=== PATIENT | male | born 1975 | race Caucasian/White ===

== ENCOUNTER 2017-05-21 08:18 | Emergency (ER) | payer OTHER ==
--- NOTE | 2017-05-21 08:56 | RAD ---
HISTORY: Cough, fever COMPARISONS: March 29, 2011 VIEWS: 4: Frontal dual-energy and lateral views of the chest. FINDINGS: CARDIOMEDIASTINAL SILHOUETTE: The cardiomediastinal silhouette is normal. ZHENG: The zheng are normal. PLEURA: The costophrenic angles are sharp. No pleural abnormalities are noted. LUNG PARENCHYMA: The lungs are clear. ABDOMEN: The upper abdomen is clear. There is no subphrenic gas. BONES AND SOFT TISSUES: No bone or soft tissue abnormalities are noted. OTHER: None. IMPRESSION: NO ACTIVE CARDIOPULMONARY DISEASE.
[2017-05-21 09:20] VITALS: BP 110/77
--- NOTE | 2017-05-21 09:38 | ED ---
Respiratory - HPI Summary HPI Summary: Patient is a 42-year-old male who presents to the emergency department for a productive cough 4 days. Associated symptoms of fever as high as 102F. Past medical history of asthma. Patient states he has been needing his MDI more frequently since illness started. Associated symptoms of sore throat, sinus congestion, right-sided chest pain with coughing. Otherwise denies chest pain, his breath, diaphoresis, abdominal pain, nausea vomiting, diarrhea. Denies sick contacts. Patient states he was seen earlier in the week at urgent care and was placed on Tamiflu for suspected influenza. He is concerned today because the fever and productive cough for on going. Patient is not a smoker. Denies history of hypertension, diabetes, high cholesterol, CAD, strong family hx of [place]. Symptoms are mild in severity. No current modifying factors. - History of Current Complaint Chief Complaint: EDUpperRespComplaint Stated Complaint: POSSIBLE PNEUMONIA-CC THURSDAY FLU LIKE Time Seen by Provider: 05/21/17 08:28 Hx Obtained From: Patient Onset/Duration: Gradual Onset Timing: Constant Initial Severity: Moderate Current Severity: Moderate Pain Intensity: 0 Character: Wheezing, Cough (Productive) Sputum Amount: Moderate Sputum Color: Yellow Aggravating Factor(s): URI Alleviating Factor(s): MDI (Frequency Of Use) Associated Signs and Symptoms: Fever, URI, Wheezing, Chest Pain with Cough, Nasal Congestion, Sinus Discomfort - Risk Factors Status Asthmaticus Risk Factors: Negative Pulmonary Embolism Risk Factors: Negative Cardiac Risk Factors: Negative Pseudomonas Risk Factors: Negative Tuberculosis Risk Factors: Negative - Allergy/Home Medications Allergies/Adverse Reactions: Allergies Allergy/AdvReac Type Severity Reaction Status Date / Time naproxen [From Aleve] Allergy Tachycardia Verified 05/21/17 08:24 Home Medications: Home Medications Albuterol HFA INHALER* [Ventolin HFA Inhaler*] 2 puff INH Q4H PRN 05/21/17 [ History Confirmed 05/21/17] Fluticasone HFA 220 mcg(NF) [Flovent HFA 220 Mcg(NF)] 1 puff INH DAILY 05/21/17 [History Confirmed 05/21/17] Oseltamivir CAP* [Tamiflu CAP*] 75 mg PO BID 05/21/17 [History Confirmed ] Pantoprazole TAB (NF) [Protonix TAB (NF)] 40 mg PO DAILY 05/21/17 [History Confirmed 05/21/17] guaiFENesin ER TAB [Mucinex*] 600 mg PO BID 05/21/17 [History Confirmed 05/21/17 ] PMH/Surg Hx/FS Hx/Imm Hx Previously Healthy: Yes Endocrine/Hematology History: Denies: Hx Diabetes, Hx Thyroid Disease Cardiovascular History: Denies: Hx Hypercholesterolemia, Hx Hypertension Respiratory History: Reports: Hx Asthma Denies: Hx Chronic Obstructive Pulmonary Disease (COPD) GI History: Denies: Hx Ulcer - Surgical History Surgery Procedure, Year, and Place: plate to rt lower leg, bilat acl reconstructions Infectious Disease History: No Infectious Disease History: Denies: Hx Hepatitis, Hx Human Immunodeficiency Virus (HIV), Traveled Outside the [place] in Last 30 Days - Family History Known Family History: Positive: Unknown - PT ADOPTED - Social History Occupation: Employed Full-time Lives: With Family Alcohol Use: Occasionally Substance Use Type: Reports: None Smoking Status (MU): Never Smoked Tobacco Type: Smokeless Tobacco Review of Systems - ROS Summary Review of Systems Summary: Constitutional: Fever and chills Head/Face: No trauma. Neck: No swelling or pain. Eyes: No visual disturbances. ENT: Positive for sore throat, sinus congestion. Heart: Right-sided chest pain with coughing Lungs: Active cough and wheeze Abdomen: No pain. No nausea, vomiting or diarrhea. No abdominal pain MS: No truama. No leg swelling or pain. Skin: No rash. : No urgency frequency or dysuria. Neuro: No change in mental status. No numbness, tingling or weakness. All other systems reviewed and are negative. Positive: Fever, Chills Eyes: Negative Positive: Sore Throat, Nasal Discharge Positive: Other - Right chest pain with coughing Positive: Cough, Other - Wheeze Negative: Abdominal Pain, Vomiting, Diarrhea Genitourinary: Negative Positive: Arthralgia Skin: Negative Neurological: Negative Psychological: Normal All Other Systems Reviewed And Are Negative: Yes Physical Exam Vital Signs On Initial Exam: Initial Vitals Temp Pulse Resp BP Pulse Ox 97.9 F 88 16 133/91 97 05/21/17 08:21 05/21/17 08:21 05/21/17 08:21 05/21/17 08:21 05/21/17 08:21 Diagnostics - Vital Signs Vital Signs Temp Pulse Resp BP Pulse Ox 05/21/17 09:20 98.2 F 88 16 110/77 96 05/21/17 08:32 91 98 05/21/17 08:30 125/74 05/21/17 08:21 97.9 F 88 16 133/91 97 - Laboratory Lab Statement: Any lab studies that have been ordered have been reviewed, and results considered in the medical decision making process. Disposition - Course Course Of Treatment: Pt. presenting with ongoing productive cough and fever. He is afebrile emergency department was stable vital signs. Oxygen saturation is 96-98% on RA which is normal. Chest x-ray was obtained and is negative for infiltrate or acute change, reading per myself and radiology. Given patient's history of asthma, cough and fever will started on Zithromax and a course of steroids. Results were discussed with patient and . Advised to continue albuterol inhaler as directed every 4-6 hours for wheezing. Increase fluids and rest. Tylenol or Motrin for pain and fever as directed. Close follow-up with PCP on Thursday and return to the ER over the weekend if symptoms change or worsen. Patient and understand and agree with plan. - Differential Dx - Cardiopulmonary Differential Diagnoses - Cardiopulmonary: Asthma, Bronchitis, Sinusitis, Other - Pneumonia - Diagnoses Provider Diagnoses: Acute bacterial bronchitis Discharge - Sign-Out/Discharge Documenting (check all that apply): Discharge - Discharge Plan Condition: Good Disposition: HOME Prescriptions: Azithromycin TAB* [Zithromax TAB (Z-MICHAEL) 250 mg #6 tabs] 2 tab PO .TODAY, THEN 1 DAILY #1 michael methylPREDNISolone [Medrol Dosepak 4 MG*] 0 mg PO .SEE MICHAEL INSTRUCTION #1 tab Patient Education Materials: Acute Bronchitis (ED) Forms: *Work Release Referrals: No Primary Care Phys,NOPCP [Primary Care Provider] - 4 Days Additional Instructions: Take medications as directed Continue rescue inhaler as directed for wheezing Increase fluids and rest Tylenol or Motrin for pain and fever as directed Return to ER if symptoms change or worsen - Billing Disposition and Condition Condition: GOOD Disposition: HOME
== END 2017-05-21 09:20 | disposition home or self-care (01) ==
LOC: ED 08:18
DX: J20.9 Acute bronchitis, unspecified (principal); R50.9 Fever, unspecified; J06.9 Acute upper respiratory infection, unspecified; R06.2 Wheezing; R07.9 Chest pain, unspecified; R05 Cough; R09.81 Nasal congestion
CPT/HCPCS: 71046; 99282

== ENCOUNTER 2018-06-28 08:15 | Emergency (ER) | payer OTHER ==
--- NOTE | 2018-06-28 09:17 | ED ---
Upper Extremity Pain - HPI Summary HPI Summary: The patient is a 43 year old M presenting to [facility] accompanied by with a chief complaint of R shoulder pain since this morning today, 06/28/18. Patient said he pulling a road saw cord when his shoulder let go and popped. The patient rates the pain 5/10 in severity. Patient reports decreased ROM and increased pain with movement and palpation of the R shoulder. Patient denies any neck pain. Patient reports pain was alleviated by nothing. The patient works at [employer]. - History of Current Complaint Chief Complaint: EDExtremityUpper Stated Complaint: RIGHT SHOULDER INJURY PER PT Time Seen by Provider: 06/28/18 08:20 Hx Obtained From: Patient Mechanism Of Injury: Other - Pulling a road saw cord Onset/Duration: Started Hours Ago - This morning, Still Present Timing: Constant, Lasting Hours - This morning Severity Initially: Moderate Severity Currently: Moderate Pain Location: Shoulder - Right Aggravating Factor(s): Movement, Other - palpation of R shoulder Alleviating Factor(s): Nothing Associated Signs & Symptoms: Positive: Other - Positive: Decreased ROM. Negative: Neck Pain - Allergies/Home Medications Allergies/Adverse Reactions: Allergies Allergy/AdvReac Type Severity Reaction Status Date / Time naproxen [From Aleve] Allergy Tachycardia Verified 05/21/17 08:24 PMH/Surg Hx/FS Hx/Imm Hx Previously Healthy: No Endocrine/Hematology History: Denies: Hx Diabetes, Hx Thyroid Disease Cardiovascular History: Denies: Hx Hypercholesterolemia, Hx Hypertension Respiratory History: Reports: Hx Asthma Denies: Hx Chronic Obstructive Pulmonary Disease (COPD) GI History: Denies: Hx Ulcer - Surgical History Surgery Procedure, Year, and Place: plate to rt lower leg, bilat acl reconstructions Infectious Disease History: No Infectious Disease History: Denies: Hx Hepatitis, Hx Human Immunodeficiency Virus (HIV), Traveled Outside the [place] in Last 30 Days - Family History Known Family History: Positive: Unknown - PT ADOPTED - Social History Alcohol Use: Occasionally Hx Substance Use: No Substance Use Type: Reports: None Hx Tobacco Use: No Smoking Status (MU): Never Smoked Tobacco Type: Smokeless Tobacco Review of Systems Negative: Fever Positive: Myalgia - R shoulder pain, Decreased ROM, Other - Negative: Neck pain All Other Systems Reviewed And Are Negative: Yes Physical Exam - Summary Physical Exam Summary: Appearance: The patient is well-nourished in no acute distress and in no acute pain. Skin: The skin is warm and dry and skin color reflects adequate perfusion. HEENT: The head is normocephalic and atraumatic. The pupils are equal and reactive. The conjunctivae are clear and without drainage. Nares are patent and without drainage. Mouth reveals moist mucous membranes and the throat is without erythema and exudate. The external ears are intact. The ear canals are patent and without drainage. The tympanic membranes are intact. Neck: The neck is supple with full range of motion and non-tender. There are no carotid bruits. There is no neck vein distension. Respiratory: Chest is non-tender. Lungs are clear to auscultation and breath sounds are symmetrical and equal. Cardiovascular: Heart is regular rate and rhythm. There is no murmur or rub auscultated. There is no peripheral edema and pulses are symmetrical and equal. Abdomen: The abdomen is soft and non-tender. There are normal bowel sounds heard in all four quadrants and there is no organomegaly palpated. Musculoskeletal: There is no back tenderness noted. Extremities are non-tender with full range of motion. There is good capillary refill. There is no peripheral edema or calf tenderness elicited. Tenderness of R shoulder on infraspinatus muscle. Tenderness to R shoulder with active and passive ROM. Neurological: Patient is alert and oriented to person, place and time. The patient has symmetrical motor strength in all four extremities. Cranial nerves are grossly intact. Deep tendon reflexes are symmetrical and equal in all four extremities. Psychiatric: The patient has an appropriate affect and does not exhibit any anxiety or depression Triage Information Reviewed: Yes Vital Signs On Initial Exam: Initial Vitals Temp Pulse Resp BP Pulse Ox 98.2 F 61 18 139/86 97 06/28/18 08:21 06/28/18 08:21 06/28/18 08:21 06/28/18 08:21 06/28/18 08:21 Vital Signs Reviewed: Yes Diagnostics - Vital Signs Vital Signs Temp Pulse Resp BP Pulse Ox 06/28/18 08:21 98.2 F 61 18 139/86 97 - Laboratory Lab Statement: Any lab studies that have been ordered have been reviewed, and results considered in the medical decision making process. - Radiology Shoulder X Ray Radiology Interpretation Completed By: Radiologist Summary of Radiographic Findings: NO ACUTE OSSEOUS INJURY. IF SYMPTOMS PERSIST, RECOMMEND REPEAT IMAGING. ED physician reviewed this report. Course/Dx - Course Course Of Treatment: Mr. Nogueira was pulling on a cord today to start a motor when he got sudden pain in the back of his right shoulder. Neurovascular and motor were intact and he was nontoxic in appearance with stable vitals. He was tender in his posterior shoulder where his infraspinatus meets his rotator cuff. I don't feel any That is tender to any attempted range of motion of the shoulder. I placed him in a shoulder immobilizer and recommended follow-up with orthopedics ibuprofen for pain. - Diagnoses Provider Diagnoses: Shoulder injury Discharge - Sign-Out/Discharge Documenting (check all that apply): Patient Departure - discharge Patient Received Moderate/Deep Sedation with Procedure: No - Discharge Plan Condition: Stable Disposition: HOME Patient Education Materials: Shoulder Sprain (ED) Forms: *Work Release Referrals: David Anderson MD [Medical Doctor] - 2 Days Additional Instructions: Follow up with Dr. Anderson, orthopedics in 2-3 days. Return to the Emergency Department for any new or worsening symptoms. - Billing Disposition and Condition Condition: STABLE Disposition: Home - Attestation Statements Document Initiated by Scribe: Yes Documenting Scribe: Topher Mariscal Provider For Whom Jesse is Documenting (Include Credential): Garret Lino MD Scribe Attestation: Rey Betancur Jacob Kolenda, scribed for Garret Lino MD on 06/28/18 at 1206. Scribe Documentation Reviewed: Yes Provider Attestation: The documentation as recorded by the scribe, Topher Mariscal accurately reflects the service I personally performed and the decisions made by me, Garret Lino MD Status of Scribe Document: Viewed
[2018-06-28 09:48] VITALS: BP 119/85
== END 2018-06-28 09:47 | disposition home or self-care (01) ==
LOC: ED 08:15
DX: S49.91XA Unspecified injury of right shoulder and upper arm, initial encounter (principal); X50.9XXA Other and unspecified overexertion or strenuous movements or postures, initial encounter; Z88.8 Allergy status to other drugs, medicaments and biological substances
CPT/HCPCS: 99282

== ENCOUNTER 2019-03-01 09:25 | Emergency (ER) | payer OTHER ==
--- OUTSIDE RECORDS SUMMARY | 2019-03-01 09:33 | XMS REPORT | Summary of Care ---
:1975 Author Organization [facility] Address [address] [address] Care Team Providers Name Role Phone None, [place] Primary Care Provider Unavailable Reason for Visit Reason Comments Post-op Follow-up Post-op right RCR 11-24-18. Patient states his right shoulder is doing pretty good. PT is going good as well. Encounter Details Date Type Department Care Team Description 02/18/2019 Office Visit [facility] - David Anderson MD S/P rotator cuff [place] [address] [facility] repair (Primary Dx) [address] [place] [place] [address] [place] [address] [place] [address] [phone] Allergies Active Allergy Reactions Severity Noted Date Comments Naproxen Cardiac Reaction 05/21/2017 documented as of this encounter (statuses as of 02/20/2019) Medications Medication Sig Dispensed Refills Start Date End Date Status albuterol HFA (VENTOLIN) Take by 0 05/21/2017 Active 108 (90 Base) MCG/ACT inhalation. Inhalation Aero Soln fluticasone (FLOVENT HFA) Take by 0 05/21/2017 Active 220 MCG/ACT Inhalation inhalation. Aerosol montelukast (SINGULAIR) 5 Take by 0 11/10/2013 Active MG Oral Chew Tab mouth. Methylphenidate HCl Take by 0 05/19/2017 Active (METHYLPHENIDATE PO TAB mouth. 2.5 MG, 1/2X5 MG,, RITALIN,) Ibuprofen (IBU PO) Take by 0 Active mouth. documented as of this encounter (statuses as of 02/20/2019) Active Problems Problem Noted Date Complete tear of right rotator cuff 11/05/2018 Overview: Added automatically from request for surgery [id number] Allergic rhinitis 03/25/2007 Asthma 03/25/2007 documented as of this encounter (statuses as of 02/20/2019) Social History Tobacco Use Types Packs/Day Years Used Date Former Smoker Cigarettes 0 Smokeless Tobacco: Former User Chew Alcohol Use Drinks/Week oz/Week Comments Yes 2 Cans of beer 2.0 rarely Alcohol Habits Answer Date Recorded How often do you have a drink containing alcohol? Not asked How many drinks containing alcohol do you have on a typical 1 or 2 11/10/2018 day when you are drinking? How often do you have six or more drinks on one occasion? Not asked Sex Assigned at Date Recorded Not on file Job Start Date Occupation Industry Not on file Not on file Not on file Travel History Travel Start Travel End No recent travel history available. documented as of this encounter Last Filed Vital Signs Vital Sign Reading Time Taken Comments Blood Pressure 98/84 02/18/2019 9:15 AM EST Pulse 81 02/18/2019 9:15 AM EST Temperature - - Respiratory Rate - - Oxygen Saturation - - Inhaled Oxygen Concentration - - Weight 102.1 kg (225 lb) 02/18/2019 9:15 AM EST Height 175.3 cm (5' 9") 02/18/2019 9:15 AM EST Body Mass Index 33.23 02/18/2019 9:15 AM EST documented in this encounter Progress Notes David Anderson MD - 02/18/2019 9:15 AM EST Name: Vivek Nogueira : 1975 Date of Service: 02/18/2019 Chief Complaint Patient presents with Post-op Follow-up Post-op right RCR 11-24-18. Patient states his right shoulder is doing pretty good. PT is going good as well. History of Present Illness: Vivek Nogueira is a 44-y.o. male. The above is noted. Patient is in today for evaluation of his right shoulder status post rotator cuff repair performed 11/24/2018 he is doing quite well and quite pleased with his recovery thus far. Physical Examination: BP 98/84 | Pulse 81 | Ht 5' 9" (1.753 m) | Wt 225 lb (102.1 kg) | BMI 33.23 kg/m Well-developed well-nourished male in minimal discomfort at rest. Patient is neurovascularly intact. Patient has forward elevation of his right shoulder 170 degrees abduction is 160 degrees after which he has mild discomfort patient has been going to physical therapy. Impression: Status post right shoulder rotator cuff repair Plan: Continue physical therapy and follow-up in the office in 6 weeks Follow-up with Tori Wagner. All questions were answered. There are no Patient Instructions on file for this visit. Author: David Anderson MD 02/18/2019 09:38 documented in this encounter Plan of Treatment Date Type Specialty Care Team Description 04/01/2019 Office Visit Orthopedics Yara Wagner, [facility] [address] [place] [address] [phone] Health Maintenance Due Date Last Done Comments PNEUMOCOCCAL 0-64 YRS (1 of 01/08/1980 1 - PPSV23) DTaP/Tdap/Td Vaccines ( - 1985 Tdap) DEPRESSION SCREENING 1986 HIV SCREENING 1989 DIABETES SCREENING 03/09/2018 03/09/2017, 08/14/2016, 11/15/2015, Additional history exists INFLUENZA VACCINE (#1) 2018 LIPID DISORDER SCREENING 03/09/2022 03/09/2017, 08/14/2016, 11/15/2015, Additional history exists HEPATITIS A IMMUNIZATION Aged Out No longer eligible SERIES based on patient's age to complete this topic HPV IMMUNIZATION SERIES Aged Out No longer eligible based on patient's age to complete this topic MENINGOCOCCAL VACCINE IMM Aged Out No longer eligible based on patient's age to complete this topic documented as of this encounter Results Not on filedocumented in this encounter Visit Diagnoses Diagnosis S/P rotator cuff repair Other postprocedural status documented in this encounter Insurance Payer Benefit Plan Subscriber ID Effective Phone Address Type / Group Dates PAMELA WHITE xxxxxxxxxxxxxxxx 2018-Pres Workers [employer] ent - [place] (Home) [facility] [phone] [place], [place] (Work) [id number] documented as of this encounter
--- OUTSIDE RECORDS SUMMARY | 2019-03-01 09:33 | XMS REPORT | Continuity of Care Document ---
:1975 Author Organization 0001 - [email or web address] Address [address] [place] [address] Phone Care Team Providers Name Role Phone KAREN BIRMINGHAM MD Unavailable Unavailable Allergies, Adverse Reactions, Alerts Substance Reaction Status PSEUDOEPHEDRINE HCL chest pain Active NAPROXEN SODIUM chest pain Active PSEUDOEPHEDRINE HCL chest pain Active NAPROXEN SODIUM Unknown Active Medications Medication Instructions Dosage Effective Status Comments Dates (start - stop) Ritalin 10 mg take 1 tablet by 10 MG - Active MDD 2 tablet oral route 2 times Reference every day #:[id number] Ventolin HFA 90 inhale 2 puff by 2 puff - Active patient mcg/actuation Inhalation route requesting aerosol inhaler every 4 - 6 hours Ventolin - if as needed need be - please contact me and will send ARAVIND [employer] inhale 1 puff by 1.00 puff - Active 50 mcg/dose inhalation route 2 powder for times every day in inhalation the morning and evening approximately 12 hours apart Gema Allergy take 1 tablet by 180 MG - Active 180 mg tablet oral route every day Nasacort 55 mcg 2 sprays each - Active nasal spray nostril once daily aerosol Ritalin 10 mg take 1 tablet by 10 MG - No Longer MDD 2 tablet oral route 2 times Active Reference #: every day [id number] Problems Condition Effective Dates (start - stop) Clinical Status Attention-deficit hyperactivity disorder, predominantly inattentive type Asthma in adult, mild persistent, uncomplicated Mixed hyperlipidemia Eosinophilic esophagitis 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 Seasonal allergic rhinitis due to other allergic trigger Traumatic complete tear of right rotator cuff, subsequent encounter Chronic pain of right knee Encntr for general adult medical exam w/o abnormal findings Attention-deficit hyperactivity disorder, predominantly inattentive type Asthma in adult, mild persistent, uncomplicated Mixed hyperlipidemia Eosinophilic esophagitis Nicotine dependence, chewing tobacco, uncomplicated Body mass index (BMI) 32.0-32.9, adult - Attention-deficit hyperactivity disorder, predominantly inattentive type Asthma in adult, mild persistent, uncomplicated 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 Mixed hyperlipidemia Eosinophilic esophagitis Personal history of nicotine dependence - Encntr for general adult medical exam w/o abnormal findings Attention-deficit hyperactivity disorder, unspecified type Asthma in adult, mild persistent, uncomplicated 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 Nicotine dependence, chewing tobacco, uncomplicated Dysphagia, unspecified type Body mass index (BMI) 32.0-32.9, adult - Personal history of nicotine dependence - Hypercholesteremia 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 Encntr for surgical aftcr fol surgery - on the skin, subcu Follicular disorder, unspecified - Neoplasm of uncertain behavior of skin Follicular disorder, unspecified - Neoplasm of uncertain behavior of skin Neoplasm of unsp behavior of bone, soft - tissue, and skin Hypercholesteremia Attention-deficit hyperactivity disorder, unspecified type Asthma in adult, mild persistent, uncomplicated Disorder of the skin and subcutaneous tissue, unspecified Attention-deficit hyperactivity disorder, unspecified type Unspecified asthma, uncomplicated Attention-deficit hyperactivity disorder, unspecified type Vasomotor rhinitis Unspecified asthma, uncomplicated Encntr for general adult medical exam - w/o abnormal findings Encounter for general adult medical examination with abnormal findings Acute upper respiratory infection Disorder of the skin and subcutaneous tissue, unspecified Disorder of the skin and subcutaneous tissue, unspecified Attention-deficit hyperactivity disorder, unspecified type Disorder of the skin and subcutaneous tissue, unspecified Testicular hypofunction Chest pain, unspecified URI, acute URI, acute URI, acute Hypofunction, testicular NEC Low serum testosterone level Erectile dysfunction Fatigue Reactive Airway Disease History of esophageal stricture Skin lesion History of GI Bleeding - Disorder, skin NOS - ADD (attention deficit disorder) Disorder, attention deficit w/o - hyperactivity Rectal bleeding ADD (attention deficit disorder) Hemorrhage, rectal/anal - Disorder, attention deficit w/o - hyperactivity Chest Pain, Unspecified Chest Pain, Unspecified - Chest Pain, Unspecified - Chest Pain, Unspecified - Routine Medical Exam - Chronic Rhinitis, allergic NOS - Chronic Asthma - Chronic Encounter, administrative NEC - Chronic Tobacco Abuse, History of - Chronic Disorder, attention deficit w/o - Chronic hyperactivity Routine Medical Exam - Chronic Rhinitis, allergic NOS - Chronic Asthma - Chronic Tobacco Abuse - Chronic Disorder, attention deficit - Chronic w/hyperactivity Disorder, attention deficit - Chronic w/hyperactivity Disorder, attention deficit - Chronic w/hyperactivity Chest Pain, Unspecified Symptomatic Procedures Procedure Date Procedure Unknown Results Test Name Date and Time Measure Units Reference Range Abnormal Flag Status Comments Unknown Encounters Encounter Practice Location Reason(s) Diagnoses Date Provider Providers Description For Visit Copied on Encounter 2019 - [facility] Jan- [employer], Primary 0-201 KAREN. 33-57 Care [address] [place], [address]. [address], tel: tel: [phone] 2019 [facility] Dec- [employer], Primary 8-201 KAREN. 33-57 Care [address] [place], [address]. [address], [place] tel: tel: [phone] 2019 [facility] Nov-2 [employer], Primary 8-201 KAREN. 33-57 Care [address] [place], [address]. [address], [place] tel: tel: [phone] 2019 [facility] Attention-deficit Oct-0 [employer] [facility], Primary hyperactivity KAREN. Care disorder, [address] predominantly [address], Street, inattentive [place], [place] typeAsthma in adult, [place], mild persistent, [address]. [address], [place] uncomplicatedMixed tel: tel:60 hyperlipidemiaEosinop [phone] hilic esophagitisSebaceous gland hyperplasia of faceTesticular hypofunctionSeasonal allergic rhinitis due to other allergic triggerTraumatic complete tear of right rotator cuff, subsequent encounterChronic pain of right knee 2019 [facility] Encntr for general [facility] [employer] [facility], Primary adult medical exam KAREN. Care w/o abnormal [address] Garzono findingsAttention-def Street, Street, icit hyperactivity [place], [place] [facility], [place], predominantly [address]. [address], [place] inattentive tel: tel:60 typeAsthma in adult, [id number] mild persistent, uncomplicatedMixed hyperlipidemiaEosinop hilic esophagitisNicotine dependence, chewing tobacco, uncomplicatedBody mass index (BMI) 32.0-32.9, adult 2019 [facility] Attention-deficit Eusebio- [facility] [employer] [facility], Primary hyperactivity KAREN. Care disorder, [address] predominantly [address], Street, inattentive [place], Luc typeAsthma in adult, [place], [place], mild persistent, [address]. [address], [place] uncomplicatedSebaceou tel: tel:60 s gland hyperplasia [phone] of faceTesticular hypofunctionMixed hyperlipidemiaEosinop hilic esophagitisPersonal history of nicotine dependence 2019 [facility] Encntr for general CAMER[employer], Primary adult medical exam ALFRED. Care w/o abnormal Benjamin Haynesego findingsAttention-def Benjamin Street, icit hyperactivity St, [place] disorder, unspecified [place], [place], typeAsthma in adult, [place], [address], [place] mild persistent, [address]. tel: uncomplicatedSebaceou tel: [phone] s gland hyperplasia [phone] of faceTesticular hypofunctionNicotine dependence, chewing tobacco, uncomplicatedDysphagi a, unspecified typeBody mass index (BMI) 32.0-32.9, adultPersonal history of nicotine dependence 0001 - S HypercholesteremiaTes Feb- [employer], Primary ticular hypofunction ALFRED. Care 8 [facility], [place], [place], [place], [address], [place] [address]. tel: tel: [phone] 0001 - S Sebaceous gland Sep- [employer], Plastic hyperplasia of OMOTINUWE Surgery faceEncntr for 7 . [facility] [address] [place] surgical aftcr fol [facility], surgery on the skin, Sd 2, [place] subcuFollicular [place], disorder, [place], [address], [place] [address]. tel: tel: [phone] 0001 - S Neoplasm of uncertain Oct- [employer], Plastic behavior of OMOTINUWE Surgery skinFollicular 7 . S [address] disorder, unspecified [facility], Sd 2, [place], [place], [place], [address], [place] [address]. tel: tel: [phone] 0001 - S Neoplasm of uncertain Sep- [employer], Plastic behavior of OMOTINUWE Surgery skinNeoplasm of unsp 7 . S [address] [place] behavior of bone, [facility], soft tissue, and skin Fl 2, [place], [place], [place], [address], [place] [address]. tel: tel: [phone] 0001 - S Hypercholesteremia [employer], Primary 2-201 ALFRED. Care 7 [facility], [place], [place], [place], [place], [address], [place] [address]. tel: tel: [phone] [address] [place] [address] Attention-deficit Azam-0 [employer]OH[employer], Primary hyperactivity ALFRED. Care disorder, unspecified 7 Benjamin [place] typeAsthma in adult, Benjamin Espinoza, mild persistent, St, Luc uncomplicatedDisorder [place], [place], [place], [address], [place] subcutaneous tissue, [address]. tel: unspecified tel: [phone] [address] [place] [address] Attention-deficit Dec-2 [employer], Primary hyperactivity ERIC. Care disorder, unspecified [address] typeUnspecified St, Street, asthma, uncomplicated [facility], Luc eg, [place], [address], [place] [address]. tel: tel: [phone] [address] [place] [address] Attention-deficit Oct- [employer], Primary hyperactivity ERIC. Care disorder, unspecified [address] typeVasomotor St, Street, rhinitisUnspecified SP, [place] asthma, eg, [place], [place], [place], [address], [place] for general adult [address]. tel: medical exam w/o tel: [phone] abnormal findings [phone] [address] [place] [address] Encounter for general Sep- [employer], Primary adult medical ERIC. Care examination with [address] Garzono abnormal findings St, Street, [facility], [place] eg, [place], [address], [place] [address]. tel: tel: [phone] [address] [place] [address] Acute upper Mar- KATHLEEN [employer], Primary respiratory infection BESSY. Care 6 [address] [facility], [place], [place] [address], [place], [place], [place], [address], [place], tel: [phone] tel: [phone] 0001 - S Disorder of the skin [facility], Primary and subcutaneous 8- ERIC. 33-57 Care tissue, unspecified 6 [address] [facility], [facility], [place], [address], [place] [address]. tel: tel: [phone] 2019 - [facility] Disorder of the skin [facility] Inc, Primary and subcutaneous 8 ERIC. 33-57 Care tissue, unspecified 6 [address] [facility], [place], [place], [address], [place] [address]. tel: tel: [phone] 2019 - S Attention-deficit Feb- [facility], Primary hyperactivity 6 ERIC. Care disorder, unspecified [address] Garzon typeDisorder of the [facility], skin and subcutaneous [facility], [place], [place], [facility], [address], [place] hypofunction [address]. tel: tel: [phone] 2019 - S Chest pain, Nov- [facility], Primary unspecified 3 JOSE MIGUEL. 33- Care 5 [place], [address], [place] tel: [phone] 2019 - [facility] URI, [facility], Primary 8 ERIC. Provider: 33-57 Care [address] ERIC [address]arden , [facility], [address] [place], [place], [place], [place], [address], [place] [address]. [address]. tel: tel: tel:[phone] 0001 - [facility] URI, acute [facility], Primary 9 ERIC. 33-57 Care 4 [address] [facility], [place], [facility], [place], [place], [address], [place] [address]. tel: tel: [phone] 0001 - S URI, acute Eusebio- [employer], Primary 6-201 ERIC. Care 4 [address] [facility], [place], [address], [place] [address]. tel: tel: [phone] 0001 - S Hypofunction, Apr-0 [employer], Primary testicular NEC 4- ERIC. Care 4 [address] [facility], [place], [address], [place] [address]. tel: tel: [phone] 0001 - S Low serum Dec- [employer], Primary testosterone level 8 ERIC. Care 3 [address] [facility], [place], [facility], [place], [address], [place] [address]. tel: tel: [phone] 0001 - S Erectile Dec- [place], Primary dysfunctionFatigue 0-201 ERIC. Care 3 [address] [facility], [place], [facility], [place], [place], [address], [place] [address]. tel: tel: [phone] 0001 - S Reactive Airway Oct-0 S Inc, Primary DiseaseHistory of 2 Care esophageal 2 Benjamin [place]/Apa strictureSkin [place], [place] lesionHistory of GI [place], [place] [address], [place] tel: [phone] 2019 - S ADD (attention Aug-2 S Inc, Primary deficit 8 Care disorder)Disorder, 2 [facility] - attention deficit w/o Street, [address] [place], [address], [place] tel:+ [phone] 0001 [facility] Rectal bleedingADD June- S Inc, Primary (attention deficit 33-57 Care disorder)Hemorrhage, 2 Benjamin Garzono - rectal/analDisorder, Street, [address] attention deficit w/[place], [address], [place] tel:+ [phone] 0001 [facility] Routine Medical S Inc, Primary ExamRhinitis, 6 33-57 Care allergic 2 Benjamin Garzono - NOSAsthmaEncounter, Alexis, [address] administrative Luc NECTobacco AbuseMabscott, [place], History ofDisorder, [address], [place] attention deficit w/o tel:+ hyperactivity [phone] 0001 [facility] Chest Pain, S Inc, Primary UnspecifiedChest 0201 33-57 Care Pain, 2 Benjamin Harden - UnspecifiedChest Alexis, [address] Pain, Luc [facility] Hospital[facility] [place], [place], [address], [place] UnspecifiedChest tel:+60 Pain, Unspecified [phone] 0001 [facility] Routine Medical S Inc, Primary ExamRhinitis, 33-57 Care allergic 1 Benjamin Garzono - NOSAsthmaTobacco Alexis, [address] AbuseDisorder, [place] attention [place], [place], w/hyperactivityDisord [address], [place] er, attention deficit tel:+60 w/hyperactivityDisord [id number] er, attention deficit w/hyperactivity Family History Family Member Diagnosis Age At Onset Unknown Immunizations Vaccine Date Status Comments TDAP (Boostrix or Adacel) administered Source: New Immunization Record Influenza A (H1N1) administered Note: Abstracted:04/03/2011 ; Source: New Immunization Record Influenza A (H1N1) administered Note: Abstracted:01/29/2011 ; Source: New Immunization Record Diphtheria toxoid administered Note: Abstracted:01/29/2011 ; Source: New Immunization Record Td (7 yrs and older) administered Note: Abstracted:04/03/2011 ; Source: New Immunization Record Payers Payer name Insurance type Covered republican ID Authorization(s) [employer] He [id number] Celeste Garza [id number] Social History Type Description Quantity Date Captured Comments Alcohol Use Details Unknown Caffeine Use Details Unknown Tobacco Use Status Unknown Smoking Status Unknown Vital Signs Date / Height Weight BMI Pulse Blood Temperature Respiratory Body Head BMI Time: Rate Pressure Rate Surface Circumference percentile Area Unknown Chief Complaint And Reason For Visit No information Reason For Referral Reason For Referral Unknown Plan Of Care Date Type Action Status Referral Referred To: ordered EMERALD WALDEN [address] [facility] Floor [address] [place], [phone] Ordered: Referrals: Gastroenterology. EMERALD WALDEN. Evaluate and treat Appointment date/timeframe: 03/23/2017 Referral Ordered: ordered Referrals: Gastroenterology. Evaluate and treat Appointment date/timeframe: 2 Weeks Referral Ordered: ordered Referrals: Dermatology. Evaluate and treat Appointment date/timeframe: 1 Month Referral Ordered: ordered Referrals: Plastic Surgery. Location: [facility] Plastic Surgery. Evaluate and treat Appointment date/timeframe: 09/30/2016 Referral Ordered: ordered . Gastroenterology. Consult and treat. Appointment date/timeframe: 01/28/2012 Referral Ordered: ordered Nuclear Scan Myocardial Perfusion Rest and Stress (must specify Treadmill or Per Date Type Problem Goal Intervention Status Start Date Unknown History Of Present Illness Encounter Date Complaint History Of Present Illness No information Functional Status Encounter Date Functional Assessment Cognitive Assessment Unknown Medications Administered Medication Instructions Dosage Effective Dates (start - stop) Status Comments Drug Treatment Unknown Instructions Date Instruction Additional Information To be discussed with Dr. Mcfarland as this Related to Chronic pain of right is also a work comp issue. Previous knee ACL repair. Work comp injury. Followed by Related to Traumatic complete tear Bartolo. Scheduled for surgery of right rotator cuff, subsequent tomorrow. encounter Continue Nasacort. Patient is Related to Seasonal allergic currently off of Singulair. Will give rhinitis due to other allergic a trial with Gema 180 mg once a trigger day. Appropriate use of medication reviewed. If no improvement with Gema, we can try a lower dose of Singulair. Stable Related to Eosinophilic esophagitis Please let me know when you would Related to Sebaceous gland like to have a referral to hyperplasia of face dermatology. We will recheck labs prior to physical Related to Mixed hyperlipidemia next year Currently asymptomatic.No need for any Related to Testicular hypofunction supplementation at this time. Stable and well-controlled on current Related to Attention- deficit medications.Continue the current dose hyperactivity disorder, of Ritalin.Follow-up in 6 months for predominantly inattentive type physical.Risks and benefits of medication discussed. Chronic but stable. Continue with Related to Asthma in adult, mild Serevent . Currently off of persistent, uncomplicated Singulair.Previous intolerance to inhaled steroids Doing well overall.Please complete Related to Encntr for general adult blood [id number] with flu shot and medical exam w/o abnormal findings tetanus vaccineRecommend at least 30 minutes of aerobic exercise for a minimum of 5 days in a week for overall cardiovascular health. Counseled patient on stopping use of Related to Nicotine dependence, tobacco.Discussed treatment options chewing tobacco, uncomplicated including nicotine gums. Stable and well-controlled on current Related to Attention- deficit medications.Continue the current dose hyperactivity disorder, of Ritalin.Follow-up in 6 months predominantly inattentive type Chronic but stable. Continue with Related to Asthma in adult, mild Serevent and Singulair.Previous persistent, uncomplicated intolerance to inhaled steroids Complete repeat blood work.Cholesterol Related to Mixed hyperlipidemia Goal.Total Cholesterol<200,LDL(Bad Choesterol)<100-120,Triglycerides<150, HDL(Good cholesterol)>501. A heart-healthy lifestyle can help you prevent high cholesterol. This lifestyle helps lower your risk for a heart attack and stroke.Eat heart-healthy foods. Eat fruits, vegetables, whole grains, dried beans and peas, nuts and seeds, soy products and fat-free or low-fat dairy products. Replace butter, margarine, and hydrogenated or partially hydrogenated oils with olive and canola oils. Replace red meat with fish, poultry, and soy protein.Limit processed and packaged foods like chips, crackers, and cookies. 2.Be active. Exercise can improve your cholesterol level. Get at least 30 minutes of exercise on most days of the week. Walking is a good choice. You also may want to do other activities, such as running, swimming, cycling, or playing tennis or team sports. Stay at a healthy weight. Managed by gastroenterology. Related to Eosinophilic esophagitis Please let me know when you would Related to Sebaceous gland like to have a referral to hyperplasia of face dermatology. Labs from February did show slightly Related to Mixed hyperlipidemia elevated cholesterol. No need for medications. Will repeat in 6 months.Cholesterol Goal.Total Cholesterol<200,LDL(Bad Choesterol)<100-120,Triglycerides<150, HDL(Good cholesterol)>501. A heart-healthy lifestyle can help you prevent high cholesterol. This lifestyle helps lower your risk for a heart attack and stroke.Eat heart-healthy foods. Eat fruits, vegetables, whole grains, dried beans and peas, nuts and seeds, soy products and fat-free or low-fat dairy products. Replace butter, margarine, and hydrogenated or partially hydrogenated oils with olive and canola oils. Replace red meat with fish, poultry, and soy protein.Limit processed and packaged foods like chips, crackers, and cookies. 2.Be active. Exercise can improve your cholesterol level. Get at least 30 minutes of exercise on most days of the week. Walking is a good choice. You also may want to do other activities, such as running, swimming, cycling, or playing tennis or team sports. Stay at a healthy weight. Managed by gastroenterology. Related to Eosinophilic esophagitis Currently stable. Not much symptoms.No Related to Testicular hypofunction need for any supplementation at this time. Stable and well-controlled on current Related to Attention- deficit medications.Continue the current dose hyperactivity disorder, of Ritalin.Refill sent. predominantly inattentive type Chronic but stable. Continue with Related to Asthma in adult, mild Serevent and Singulair. persistent, uncomplicated Will place referral to GI for further Related to Dysphagia, unspecified evaluation and treatment at this type timePlease focus on small, frequent meals - chew foods well before swallowing - cut meats into small pieces - seek immediate attention at the ER for any symptoms of choking Stable. Continue same regimen. Follow Related to Asthma in adult , mild up in 6 months or sooner if needed. persistent, uncomplicated Resolved after treatment Related to Sebaceous gland hyperplasia of face Stable. Continue same regimen. Follow Related to Testicular hypofunction up in 6 months or sooner if needed. Normal exam. UTD with immunizations - Related to Encntr for general adult tetanus updated today. Follow a high medical exam w/o abnormal findings fiber diet and exercise program. Suggestdaily multi-vitamin 1 tab and Vitamin D3 2000IU daily. Yearly eye exams andbiannual dental exams. Sunscreen daily, especially when in prolonged sunlight. Follow up for routine health maintenance every 6 months andyearly physicals or sooner if needed. We will contact you with lab results once reviewed. Stable. Continue same regimen. Follow Related to Attention- deficit up in 6 months or sooner if needed. hyperactivity disorder, unspecified type You had your stitches removed Related to Sebaceous gland today.Please remember that while the hyperplasia of face skin is healing on top, you still have a lot of healing to do beneath the skin, so keep this in mind with your activities.If you have Steri-Strips on your wound these will fall off by themselves. Please do not pull off the Steri-Strips. You can trim the ends if they're starting to lift off your skin.Once the Steri-Strips are off please apply sunscreen to this area. This will avoid permanent tanning of the area.In about 3 weeks from the procedure you may start to massage the wound.Please remember scars will the worst at 3 months and their best in 3 years. Typically we give 12 months for the wound to settle down, the inflammation and redness to go away so we can see what the scar will eventually look like. You had your lesion removed today. Related to Neoplasm of uncertain You have a Band-Aid on top of the behavior of skin wound. Please keep this on for 2 days. In 2 days you may remove the Band-Aid, and shower over the wound. You may apply bacitracin twice a day to this area, and if the stitches are catching on things or you would rather have them covered you may place a Band-Aid over it. Please do not soak (submerge) your face for at least 7 days.Please sleep with your head elevated today. This will help with swelling and pain.It is okay to ice the area 15 minutes on 15 minutes off with an icepack.Please mind your activity with this area as your wound is healing. We will see you back in the office to go over the pathology report and also to go over your wound and check the healing process.Please make an appointment for 5-6 days to remove your stitches.Thank you for allowing us to be part of your care. We look forward to see you again at your return visit. You will be scheduled for removal of Related to Neoplasm of uncertain the lesions on your face. This will be behavior of skin an office procedure and you will be able to go home and drive yourself the same day (if you drive).If you take blood thinners, please confirm with your prescriber that it is ok to temporarily stop them for your office procedure.We will send the specimen to the lab to get checked, and you will be scheduled to come back to the office for review of the test (pathology report) and wound check/removal of stiches.When we take this out we will remove the lesion with as little extra skin as possible. This is to conserve your normal skin. If the pathology comes back at something cancerous then we will go back and remove more skin.As a general rule, you should have a Boiler Inspector give your skin a check at least once a year (more frequently if needed) to look at and follow other spots on your body. Will place referral to Dermatology for Related to Disorder of the skin and skin lesions noted on face Recommend subcutaneous tissue, unspecified sun screen daily Stable - continue current medication Related to Asthma in adult, mild regimenFU in 4-6 months - sooner if persistent, uncomplicated needed Stable - continue current medication Related to Attention-deficit regimenFU in 4-6 months - sooner if hyperactivity disorder, unspecified needed type stable - no changes Related to Unspecified asthma, uncomplicated stable - same medsfollow up in July Related to Attention-deficit 2017 hyperactivity disorder, unspecified type Stable - doing well - no change in Related to Attention-deficit medsfollow up in 6 months hyperactivity disorder, unspecified type same meds - nasal steroid Related to Vasomotor rhinitis no change in plan of care Related to Unspecified asthma, uncomplicated Likely viral in origin. Flonase 50 Related to Acute upper respiratory mcg/inh, 2 sprays in each nostril once infection daily, instructed on proper technique. Mucinex 600 mg 2 tablets twice daily for 1 week. Increase rest and fluids. May use Tylenol or Motrin as needed for discomfort. If not feeling better by Thursday, please let me know and I will call in antibiotic if needed. Follow up in 2 weeks if not improved, sooner if needed. 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
--- OUTSIDE RECORDS SUMMARY | 2019-03-01 09:33 | XMS REPORT | Summary of Care ---
:1975 Author Organization [facility] Address [address] [address] Care Team Providers Name Role Phone None, [place] Primary Care Provider Unavailable Reason for Referral Refer to Department Only (Routine) Status Reason Specialty Diagnoses / Referred By Referred To Procedures Contact Contact Closed Physical Therapy Diagnoses S/P rotator cuff repair David Anderson MD [address] [place] [address] Reason for Visit Reason Comments Follow Up s/p right RCR 11-24-18. Encounter Details Date Type Department Care Team Description 01/04/2019 Office Visit [facility] - David Anderson MD S/P rotator cuff [address] repair (Primary Dx) [address] [place] [address] [place] [address] [phone] Allergies Active Allergy Reactions Severity Noted Date Comments Naproxen Cardiac Reaction 05/21/2017 documented as of this encounter (statuses as of 01/09/2019) Medications Medication Sig Dispensed Refills Start Date End Date Status albuterol HFA Take by 0 05/21/2017 Active (VENTOLIN) 108 (90 inhalation. Base) MCG/ACT Inhalation Aero Soln fluticasone (FLOVENT Take by 0 05/21/2017 Active HFA) 220 MCG/ACT inhalation. Inhalation Aerosol montelukast Take by 0 11/10/2013 Active (SINGULAIR) 5 MG Oral mouth. Chew Tab Methylphenidate HCl Take by 0 05/19/2017 Active (METHYLPHENIDATE PO mouth. TAB 2.5 MG, 1/2X5 MG,, RITALIN,) Ibuprofen (IBU PO) Take by 0 Active mouth. OXYcodone-acetaminoph Take 1 Tab 42 Tab 0 11/12/2018 01/04/2019 Discontinued en (PERCOCET) 5-325 by mouth MG Oral Tab EVERY FOUR HOURS NEEDED (pain). Max Daily Amount: 6 Tabs. documented as of this encounter (statuses as of 01/09/2019) Active Problems Problem Noted Date Complete tear of right rotator cuff 11/05/2018 Overview: Added automatically from request for surgery [id number] Allergic rhinitis 03/25/2007 Asthma 03/25/2007 documented as of this encounter (statuses as of 01/09/2019) Social History Tobacco Use Types Packs/Day Years [...] Sign Reading Time Taken Comments Blood Pressure 142/89 01/04/2019 1:56 PM EST Pulse 74 01/04/2019 1:56 PM EST Temperature - - Respiratory Rate - - Oxygen Saturation - - Inhaled Oxygen Concentration - - Weight 104.3 kg (230 lb) 01/04/2019 1:56 PM EST Height - - Body Mass Index 33.97 12/07/2018 10:26 AM EDT documented in this encounter Progress Notes David Anderson MD - 01/04/2019 1:45 PM EST Name: Vivek Nogueira : 1975 Date of Service: 01/04/2019 Chief Complaint Patient presents with Follow Up s/p right RCR 11-24-18. History of Present Illness: Vivek Nogueira i is a 43-y.o. male. The above is noted. It is in today for follow-up of right shoulder rotator cuff repair performed on 11/24/2018. Doing quite well. Physical Examination: BP 142/89 | Pulse 74 | Wt 230 lb (104.3 kg) | BMI 33.97 kg/m Incision is clean and dry without any evidence of dehiscence he is neurovascularly intact. Impression: Status post right shoulder decompression and rotator cuff repair Plan: Follow-up in physical therapy continue with phase 2 strengthening of the rotator cuff. Will follow up with Tori Wagner in 6 weeks All questions were answered. There are no Patient Instructions on file for this visit. Author: David Anderson MD 01/04/2019 14:06 documented in this encounter Plan of Treatment Date Type Specialty Care Team Description 02/18/2019 Office Visit Orthopedics David Anderson MD [address] [place] [address] [phone] Name Type Priority Associated Diagnoses Order Schedule REFER TO PHYSICAL Referral Routine S/P rotator cuff repair Expected: 2018, THERAPY / REHAB Expires: 01/04/2020 Health Maintenance Due Date Last Done Comments PNEUMOCOCCAL 0-64 YRS (1 of 01/08/1980 1 - PPSV23) DEPRESSION SCREENING 1986 HIV SCREENING 1989 DIABETES SCREENING 03/09/2018 03/09/2017, 08/14/2016, 11/15/2015, Additional history exists INFLUENZA VACCINE (#1) 2018 LIPID DISORDER SCREENING 03/09/2022 03/09/2017, 08/14/2016, 11/15/2015, Additional history exists HPV IMMUNIZATION SERIES Aged Out No longer eligible based on patient's age to complete this topic MENINGOCOCCAL VACCINE IMM Aged Out No longer eligible based on patient's age to complete this topic documented as of this encounter Results Not on filedocumented in this encounter Visit Diagnoses Diagnosis S/P rotator cuff repair - Primary Other postprocedural status documented in this encounter Insurance Payer Benefit Plan Subscriber ID Effective Phone Address Type / Group Dates PAMELA WHITE xxxxxxxxxxxxxxxx 2018-Pres Workers [employer] ent - [place] (Home) [facility] [phone] [place], [place] (Work) [id number] documented as of this encounter"
[2019-03-01 09:41] VITALS: BP 113/76
--- NOTE | 2019-03-01 10:35 | UC ---
FLU HPI - HPI Summary HPI Summary: 44-year-old male presenting with chills, body aches, sore throat, headache, and denies feeling heavy since this morning when he woke up. Patient states that his and daughter had both a flu and strep at home last week. Notes some nasal congestion. Denies coughing, shortness of breath, and wheezing. Denies nausea and vomiting. Denies decreased appetite or fluid intake. States he is concerned for a flu and strep. Denies taking anything for symptom relief. - History of Current Complaint Chief Complaint: UCGeneralIllness Stated Complaint: CHEST CONGESTION SORE THROAT HEAVY EYES Hx Obtained From: Patient Onset/Duration: Sudden Onset Pain Intensity: 2 Pain Scale Used: 0-10 Numeric - Allergy/Home Medications Allergies/Adverse Reactions: Allergies Allergy/AdvReac Type Severity Reaction Status Date / Time naproxen [From Aleve] Allergy Tachycardia Verified 03/01/19 09:42 PMH/Surg Hx/FS Hx/Imm Hx - Surgical History Surgical History: Yes Surgery Procedure, Year, and Place: plate to rt lower leg, bilat acl reconstructions, rotator cuff right repair 12/04 - Family History Known Family History: Positive: Unknown - PT ADOPTED, Non-Contributory - Social History Alcohol Use: Occasionally Substance Use Type: None Smoking Status (MU): Never Smoked Tobacco Type: Smokeless Tobacco Review of Systems All Other Systems Reviewed And Are Negative: Yes Constitutional: Positive: Chills, Fatigue ENT: Positive: Sore Throat, Sinus Congestion. Negative: Ear Ache Respiratory: Positive: Negative Cardiovascular: Positive: Negative Gastrointestinal: Positive: Negative Musculoskeletal: Positive: Myalgia Neurological: Positive: Headache Physical Exam Triage Information Reviewed: Yes Appearance: Well-Appearing, No Pain Distress, Well-Nourished Vital Signs: Initial Vital Signs Temp 98.5 F 03/01/19 09:37 Pulse 76 03/01/19 09:37 Resp 20 03/01/19 09:37 BP 113/76 03/01/19 09:37 Pulse Ox 99 03/01/19 09:37 Lab Results 03/01/19 03/01/19 Range/Units 10:51 10:53 Influenza A (Rapid) Negative (Negative) Influenza B (Rapid) Negative (Negative) Group A Strep Rapid Positive A (Negative) Vital Signs Reviewed: Yes Eyes: Positive: Conjunctiva Clear ENT: Positive: Hearing grossly normal, Pharyngeal erythema, Nasal congestion, TMs normal, Tonsillar swelling, Uvula midline. Negative: Tonsillar exudate, Trismus, Muffled voice, Hoarse voice Neck exam: Normal Neck: Positive: Supple, Nontender, No Lymphadenopathy Respiratory Exam: Normal Respiratory: Positive: Lungs clear, Normal breath sounds, No respiratory distress Cardiovascular Exam: Normal Cardiovascular: Positive: RRR, No Murmur Neurological: Positive: Alert Psychological: Positive: Age Appropriate Behavior Skin Exam: Normal Flu Course/Dx - Course Course Of Treatment: Patient strep test positive. Negative rapid flu. I am treating with penicillin V for strep throat and Tamiflu based on exposure and symptoms of flu. Instructed to continue symptomatic treatment and follow up with PCP if symptoms persist. Instructed to go to ED with any new or worsening symptoms. Patient voiced understanding and agree with the treatment plan. - Differential Dx/Diagnosis Provider Diagnosis: Strep pharyngitis, Flu-like symptoms, Exposure to influenza Discharge ED - Sign-Out/Discharge Documenting (check all that apply): Patient Departure All imaging exams completed and their final reports reviewed: No Studies - Discharge Plan Condition: Stable Disposition: HOME Prescriptions: Oseltamivir CAP* [Tamiflu CAP*] 75 mg PO BID 5 Days #10 cap Penicillin VK 500 MG TAB(NF) [Penicillin VK 500 mg Tab] 500 mg PO BID #20 tab Patient Education Materials: Strep Throat (ED) Referrals: [facility] [Outside] - If Needed [facility] [Outside] - If Needed Additional Instructions: As discussed, you tested positive for strep throat today. Take penicillin as prescribed for the treatment of strep throat. You tested negative for influenza but will be treated based on symptoms and exposure. Take tamiflu as prescribed. You may take ibuprofen and/or tylenol as directed for fever and pain relief. You may use over the counter throat sprays or lozenges for symptomatic relief. Get plenty of rest and increase fluid intake. Follow up with your primary care provider or one of the referrals listed below if symptoms worsen or do not resolve within 10 days. - Billing Disposition and Condition Condition: STABLE Disposition: Home - Attestation Statements Provider Attestation: This patient was not seen by me. I was available for consult. Chart reviewed. KRISHAN
[2019-03-01 11:05] LABS: Influenza A Molecular NEGATIVE (Negative); Influenza B Molecular NEGATIVE (Negative)
== END 2019-03-01 11:30 | disposition home or self-care (01) ==
LOC: UCEAST 09:25
DX: J02.0 Streptococcal pharyngitis (principal); Z20.828 Contact with and (suspected) exposure to other viral communicable diseases; R68.83 Chills (without fever); R09.81 Nasal congestion; R53.83 Other fatigue; Z88.6 Allergy status to analgesic agent
CPT/HCPCS: 87651; 99212; G0463